=== PATIENT | female | born 1995 | race Caucasian/White ===

== ENCOUNTER 2017-11-14 08:40 | Inpatient (IN) | payer MEDICAID ==
[~2017-11-14] VITALS: Ht 160 cm; Wt 49.9 kg
[2017-11-14] MEDS ORDERED: TERBUTALINE 1 MG/ML VIAL SUBQ ONE ×2 (10:13→12:24)
[2017-11-14] MEDS ORDERED: TERBUTALINE 1 MG/ML VIAL SUBQ SCH (10:20)
[2017-11-14] MEDS ORDERED: NALBUPHINE HYDROCHLORIDE 10 MG/ML VIAL IVP PRN (12:55)
[2017-11-14] MEDS ORDERED: MAG SULF 2000 MG/WATER PREMIX 50 ML IV SCH (12:55)
[2017-11-14 13:10] VITALS: BP 117/68
[2017-11-14] MEDS ORDERED: BETAMETH ACET/BETAMETH NA PH 30 MG/5 ML VIAL IM ONE (13:12)
[2017-11-14 13:30] LABS: BASOPHILS % (AUTO) 0.2 % (0.0-2.0); EOSINOPHILS # (AUTO) 0.1 K/uL (0-0.4); HEMATOCRIT 36.5 % (36-48); HEMOGLOBIN 12.1 g/dL (12.0-16.0); LYMPHOCYTES # (AUTO) 1.7 K/uL (2.5-16.5); LYMPHOCYTES % (AUTO) 11.5 % (20.5-51.1); MEAN CORPUSCULAR HEMOGLOBIN 30 pg (27-31); MEAN CORPUSCULAR HGB CONC 33 g/dL (33-37); MEAN CORPUSCULAR VOLUME 90.5 fL (80-94); MONOCYTES # (AUTO) 0.7 K/uL (0.8-1.0); MONOCYTES % (AUTO) 5.1 % (1.7-9.3); NEUTROPHILS # (AUTO) 12.1 K/uL (1.8-7.7); NEUTROPHILS % (AUTO) 82.2 % (42.2-75.2); PLATELET COUNT (AUTO) 255 K/uL (140-450); RED BLOOD CELL COUNT(AUTO) 4.03 MIL/uL (4.20-5.40); RED CELL DISTRIBUTION WIDTH 12.6 % (11.6-13.7); WHITE BLOOD COUNT (AUTO) 14.7 K/uL (4.8-10.8)
[2017-11-14] MEDS ORDERED: NIFEdipine 10 MG CAPLF ONE ×3 (13:41→15:41)
[2017-11-14] MEDS: NIFEdipine 10 MG CAPLF PO SCH ×3 (13:44→15:42)
[2017-11-14 13:47] LABS: ALBUMIN 2.9 g/dL (3.4-5.0); ANION GAP 14.3 (8-16); BILIRUBIN,DIRECT 0.1 mg/dL (0.0-0.3); CARBON DIOXIDE 23.5 mmol/L (21-32); CREATININE 0.7 mg/dL (0.6-1.3); TOTAL BILIRUBIN 0.3 mg/dL (0.0-1.0)
[2017-11-14 13:52] LABS: POTASSIUM 2.8 mmol/L (3.5-5.1)
[2017-11-14] MEDS ORDERED: AMPICILLIN 2,000 MG VIAL ONE (13:56)
[2017-11-14] MEDS ORDERED: BETAMETH ACET/BETAMETH NA PH 30 MG/5 ML VIAL IM SCH ×2 (14:00→21:00)
[2017-11-14] MEDS ORDERED: MAG SULF 20 GM/H2O PREMIX DRIP 500 ML IV SCH (14:00)
[2017-11-14] MEDS: MAG SULF 2000 MG/WATER PREMIX 100 ML IV SCH ×2 (16:01→16:16)
[2017-11-14] MEDS ORDERED: MAG SULF 20 GM/H2O PREMIX DRIP 500 ML IV ONE (17:02)
[2017-11-14 17:39] LABS: APPEARANCE,URINE CLEAR (CLEAR); BARBITURATE, URINE NEG. ng/ml (NEG <=200); BENZODIAZEPINE, URINE NEG. ng/mL (NEG <=200); BILIRUBIN,URINE NEGATIVE (NEGATIVE); BLOOD, URINE 1+ (NEGATIVE); CANNABINOID, URINE NEG. ng/mL (NEG <=50); COCAINE, URINE NEG. ng/mL (NEG <=300); COLOR,URINE YELLOW (YELLOW); LEUKOCYTE ESTERASE ,URINE NEGATIVE (NEGATIVE); NITRITE, URINE NEGATIVE (NEGATIVE); OPIATE, URINE NEG. ng/mL (NEG <=2000); PH,URINE 6.5 (5.0-9.0); PHENCYCLIDINE SCREEN,URINE NEG. ng/mL (NEG <=25); UGLUCOSE NEGATIVE (NEGATIVE)
[2017-11-14] MEDS ORDERED: AMPICILLIN 2,000 MG in NACL 0.9% MINI-BAG PLUS 100 ML IV SCH (18:00)
[2017-11-14 18:14] LABS: RBC,URINE 11-20 (MOD) /HPF (0-5); WBC,URINE 0-5 (RARE) /HPF (0-5)
[2017-11-14] MEDS ORDERED: OXYTOCIN 10 UNITS/ML VIAL ONE (20:04)
[2017-11-14] MEDS ORDERED: CITRIC ACID/SODIUM CITRATE 30 ML UDC PO ONE (20:10)
[2017-11-14] MEDS ORDERED: ceFAZolin 1,000 MG VIAL ONE (20:22)
[2017-11-14] MEDS ORDERED: CITRIC ACID/SODIUM CITRATE 30 ML UDC ONE (20:22)
[2017-11-14] MEDS ORDERED: MORPHINE PRES FREE 10 MG/10 ML AMP IV ONE (20:31)
[2017-11-14] MEDS ORDERED: OXYTOCIN 20 UNITS in LACTATED RINGERS 1,000 ML IV SCH ×2 (20:33→20:57)
[2017-11-14] MEDS ORDERED: IBUPROFEN 800 MG TAB PO PRN (20:35)
[2017-11-14] MEDS ORDERED: oxyCODONE/APAP 5/325 MG 1 TAB TAB PO PRN (20:35)
[2017-11-14] MEDS ORDERED: TEMAZEPAM 15 MG CAP PO PRN (20:35)
[2017-11-14] MEDS ORDERED: SIMETHICONE 80 MG TAB.CHEW PO PRN (20:35)
[2017-11-14] MEDS ORDERED: ceFAZolin 1,000 MG VIAL IVP ONE (20:35)
[2017-11-14] MEDS ORDERED: TRIMETHOBENZAMIDE 200 MG/2 ML SYR IM PRN (20:35)
[2017-11-14] MEDS ORDERED: MEASLES, MUMPS, AND RUBELLA 1 VIAL SQVAC PRN (20:35)
[2017-11-14] MEDS ORDERED: METHYLERGONOVINE 0.2 MG/ML AMP IM PRN (20:35)
[2017-11-14] MEDS ORDERED: diphenhydrAMINE 50 MG/ML VIAL IVP PRN (21:00)
[2017-11-14] MEDS ORDERED: ONDANSETRON 4 MG/2 ML VIAL IVP PRN (21:00)
[2017-11-14] MEDS ORDERED: NALOXONE 0.4 MG/ML VIAL IVP PRN ×2 (21:00)
[2017-11-14] MEDS ORDERED: POTASSIUM CHLORIDE 20% 40 MEQ/15 ML UDC PO STA (21:07)
[2017-11-14] MEDS ORDERED: KCL 20 MEQ/WATER INJ PREMIX 100 ML IV SCH ×2 (21:15→22:05)
[2017-11-14] MEDS ORDERED: POTASSIUM CHLORIDE 10 MEQ TABER PO SCH (21:30)
[2017-11-14] MEDS ORDERED: OXYTOCIN 20 UNITS/LR PREMIX 1,000 ML IV ONE (21:30)
[2017-11-14] MEDS ORDERED: KCL 20 MEQ/WATER INJ PREMIX 100 ML IV ONE ×2 (21:34→21:36)
[2017-11-14] MEDS ORDERED: POTASSIUM CHLORIDE 10 MEQ TABER PO ONE (21:38)
[2017-11-14] MEDS ORDERED: LABETALOL 100 MG TAB ONE (21:55)
[2017-11-15] MEDS: KETOROLAC 30 MG/ML VIAL IVP PRN ×2 (03:46→15:16)
[2017-11-15 06:52] LABS: EOSINOPHILS % (AUTO) 0.1 % (0.0-4.0); HEMATOCRIT 31.7 % (36-48); HEMOGLOBIN 10.7 g/dL (12.0-16.0); LYMPHOCYTES # (AUTO) 0.9 K/uL (2.5-16.5); MEAN CORPUSCULAR HEMOGLOBIN 31 pg (27-31); MEAN CORPUSCULAR HGB CONC 34 g/dL (33-37); MEAN CORPUSCULAR VOLUME 90.5 fL (80-94); MONOCYTES % (AUTO) 5.3 % (1.7-9.3); NEUTROPHILS # (AUTO) 16.4 K/uL (1.8-7.7); NEUTROPHILS % (AUTO) 89.6 % (42.2-75.2); PLATELET COUNT (AUTO) 244 K/uL (140-450); RED CELL DISTRIBUTION WIDTH 12.3 % (11.6-13.7); WHITE BLOOD COUNT (AUTO) 18.3 K/uL (4.8-10.8)
[2017-11-15 11:04] LABS: ALBUMIN 2.5 g/dL (3.4-5.0); ANION GAP 13.8 (8-16); CARBON DIOXIDE 23.3 mmol/L (21-32); CREATININE 0.5 mg/dL (0.6-1.3); POTASSIUM 4.1 mmol/L (3.5-5.1); TOTAL BILIRUBIN 0.5 mg/dL (0.0-1.0)
[2017-11-15] MEDS: DOCUSATE SOD/SENNA 50/8.6 MG 1 TAB PO SCH (21:37)
[2017-11-16] MEDS: HYDROcodone/APAP 5/325 MG 1 TAB TAB PO PRN ×4 (01:27→22:33)
[2017-11-16] MEDS: DOCUSATE SOD/SENNA 50/8.6 MG 1 TAB PO SCH (21:15)
== END 2017-11-17 12:01 | disposition home or self-care (01) | DRG 540 ==
LOC: MLD 08:40 → OBSVTOIN 12:53 → MFCC 22:32
PROVIDERS: ADMIT Obstetrics & Gynecology; ATTEND Obstetrics & Gynecology
PROC: 10D00Z1 Extraction of Products of Conception, Low, Open Approach (ICD-10-PCS; principal; 2017-11-15)
PROC: 3E0234Z Introduction of Serum, Toxoid and Vaccine into Muscle, Percutaneous Approach (ICD-10-PCS; 2017-11-15)
DX: O60.14X0 Preterm labor third trimester with preterm delivery third trimester, not applicable or unspecified (principal); O32.1XX0 Maternal care for breech presentation, not applicable or unspecified; O76 Abnormality in fetal heart rate and rhythm complicating labor and delivery; Z37.0 Single live birth; Z3A.28 28 weeks gestation of pregnancy; Z23 Encounter for immunization
CPT/HCPCS: G0378 ×4; 36415; 51702; 76805; 80053; 80305; 81001; 82247; 82248; 83735; 85025; 86592; 86762; 86886; 86900; 86901; 87340; 90715; J0290; J0690; J0702; J1885; J2270; J2590; J3105; J3475; J3480; J7060; J7120; Q0092

== ENCOUNTER 2018-10-31 21:26 | Emergency (ER) | payer MEDICAID ==
[~2018-10-31] VITALS: Ht 160 cm; Wt 52.2 kg
[2018-10-31 21:38] VITALS: BP 157/74
--- NOTE | 2018-10-31 21:44 | NUR ---
PT AMBULATED TO ER BED 08
--- NOTE | 2018-10-31 22:02 | NUR ---
PT BIB S/O C/O DYSURIA AND LOWER BACK PAIN X4 DAYS. PT STATES SUDDEN ONSET OF LOWER BACK PAIN, DYSURIA, FREQUENCY TO URINATE AND PT STATES WHEN SHE JUST URINATED IS A SMALL AMOUNTS, PT STATES SHE FEELS LIKE SHE IS NOT ABLE TO EXPELL ON HER URINE. PT STATES 8/10 SHARP LOWER BACK PAIN. DENIES TRAUMA OR INJURY. DENIES N/V/D OR FEVER, +CHILLS. PT IN BED; SAFETY PRECAUTIONS IN PLACE. PMH: DENIES RX: DENIES
[2018-10-31] MEDS ORDERED: cefTRIAXone 1,000 MG in LIDOCAINE MPF 1% - 5 mL VIAL 2.1 ML IM ONE (22:10)
[2018-10-31] MEDS ORDERED: KETOROLAC 60 MG/2 ML VIAL IM ONE (22:10)
--- NOTE | 2018-10-31 23:08 | NUR ---
Patient discharged with v/s stable. Patient acting appropriatly. Patient states pain has decreased to 3/10, states coping at this level. Written and verbal after care instructions given and explained. Patient alert, oriented and verbalized understanding of instructions. Ambulatory with steady gait. All questions addressed prior to discharge. ID band removed. Patient advised to follow up with PMD. Rx of Bactrim, and Motrin given. Patient educated on indication of medication including possible reaction and side effects. Opportunity to ask questions provided and answered.
[2018-10-31 23:32] VITALS: BP 148/68
== END 2018-10-31 23:08 | disposition home or self-care (01) ==
LOC: MED 21:26
DX: N39.0 Urinary tract infection, site not specified (principal)
CPT/HCPCS: 81002; 81025; 96372; 99283; J0696; J1885; J2001